=== PATIENT | female | born 1975 | race Caucasian/White ===

== ENCOUNTER → 2019-11-08 | Day surgery (SDC) | payer BC ==
[~2019-11-08] MED LIST: Ringers Lactate 1,000 ML IV ONE
--- NOTE | 2019-11-08 12:11 | RAD REPORT ---
EXAM DESCRIPTION: US - Breast Core BX w/US Guidance - 11/08/2019 10:30 am CLINICAL HISTORY: N63.20 COMPARISON: Breast ultrasound November 01, 2019, mammogram August 2019 TECHNIQUE: The patient presents for ultrasound-guided biopsy of a previously detailed 6-7 mm hypoech oic mass in the 12 o'clock left breast. The ultrasound-guided core biopsy procedure, risks and alternatives were discussed with the patient i n detail. After answering all questions, both oral and written consent were obtained. Time out proced ure was performed. The patient had no contraindicated allergy or medication history. Preliminary imaging identified the 6-7 mm mass. The anterolateral left was prepped and draped in the usual sterile fashion. From a lateral approach, skin and deeper tissues were anesthetized with 1% lid ocaine. The mass appeared more hypoechoic on today's study than on the November 01 ultrasound. A 22 gauge need le was advanced into the mass. Aspiration was attempted. Small amount of debris was obtained within t he needle but the mass itself did not collapse. The obtained material appeared to be thick cystic flu id/ debris. No clear change in shape or decompression of the mass. Therefore procedure was advanced f urther to the ultrasound core biopsy component. Under direct sonographic visualization a 14 gauge vacuum assisted core biopsy needle was advanced and placed at the lateral margin of the mass. There were a total of two core biopsies obtained under dir ect sonographic guidance. After the initial biopsy the mass was much more difficult to identify and d id not maintain shape. All obtained material was given to pathology for histology assessment. At the conclusion of the procedure a localization clip was placed under sonographic guidance. Post biopsy imaging showed no hematoma or measurable bleeding within the breast. Hemostasis was obtai jason at the skin site with a sterile bandage placed. Post procedure care and precaution instructions were given to the patient. IMPRESSION: 1. Ultrasound-guided core biopsy was performed of the left breast 12 o'clock mass. All o btained material was given to pathology for histologic assessment. 2. Post biopsy localization clip was placed under ultrasound guidance.
== END ==
LOC: DS 09:34
PROVIDERS: ATTEND Family Medicine
DX: N63.20 Unspecified lump in the left breast, unspecified quadrant (principal)
CPT/HCPCS: 19083; 88305

== ENCOUNTER 2022-12-24 19:47 | Emergency (ER) | payer BC ==
[2022-12-24] MEDS ORDERED: HYDROCODONE/APAP 10/325 TAB ONE (21:12)
--- NOTE | 2022-12-24 21:58 | RAD REPORT ---
EXAM DESCRIPTION: RAD - Ankle Left 3 View - 12/24/2022 9:47 pm CLINICAL HISTORY: PAIN COMPARISON: No comparisons FINDINGS: Transverse fracture of the distal fibula is present. Moderate surrounding soft tissue swel ling. No dislocation.
--- NOTE | 2022-12-24 21:59 | RAD REPORT ---
EXAM DESCRIPTION: RAD - Foot Left 3 View - 12/24/2022 9:47 pm CLINICAL HISTORY: PAIN COMPARISON: <Comparisons> FINDINGS: No fracture or dislocation of the foot is seen.
[2022-12-24] MEDS ORDERED: IBUPROFEN 400 MG TAB ONE (22:37)
--- NOTE | 2022-12-24 22:40 | ER ---
Nurse's Notes [facility] Name: Anila Euceda Age: 47 yrs Sex: Female : 1975 Arrival Date: 12/24/2022 Time: 19:49 Bed 23 Private MD: Diagnosis: Distal Fibular Fracture Presentation: 12/24 20:27 Chief complaint: Patient states: States got pulled down by a dog and then rolled left ll3 ankle, states pain is 9/10. Coronavirus screen: Vaccine status: Patient reports being unvaccinated. At this time, the client does not indicate any symptoms associated with coronavirus-19. Ebola Screen: No symptoms or risks identified at this time. Initial Sepsis Screen: Does the patient meet any 2 criteria? No. Patient's initial sepsis screen is negative. Does the patient have a suspected source of infection? No. Patient's initial sepsis screen is negative. Risk Assessment: Do you want to hurt yourself or someone else? Patient reports no desire to harm self or others. Onset of symptoms was December 24, 2022 at 19:30. 20:27 Method Of Arrival: Wheelchair ll3 20:27 Acuity: KIN 3 ll3 Triage Assessment: 20:29 General: Appears uncomfortable, Behavior is calm, cooperative. Pain: Complains of pain ll3 in left lateral malleolus Pain does not radiate. Pain currently is 9 out of 10 on a pain scale. Pain began 1 hour ago. Is continuous. Neuro: Level of Consciousness is awake, alert, obeys commands, Oriented to person, place, time, situation. Derm: Skin is pink, warm \T\ dry. Musculoskeletal: Swelling present in left lateral malleolus Reports pain in left lateral malleolus since 1 hr ago. Pain is 9 out of 10 on a pain scale. 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 - Social history:: Smoking status: Patient denies any tobacco usage or history of. Screenin:00 [facility] ED Fall Risk Assessment (Adult) History of falling in the last 3 months, pf1 including since admission Yes- single mechanical fall (1 pt) Confusion or Disorientation No (0 pts) Intoxicated or Sedated No (0 pts) Impaired Gait No (0 pts) Mobility Assist Device Used No (0 pt) Altered Elimination No (0 pt) Score/Fall Risk Level 0 - 2 = Low Risk Oriented to surroundings, Maintained a safe environment, Educated pt \T\ family on fall prevention, incl call for assistance when getting out of bed, Assessed \T\ reinforced patient's understanding of fall precautions, Provided non-skid footwear, Hourly rounding (assess needs \T\ fall precautionary measures) done, Used ambulatory aids as needed (educated on \T\ assisted with), Used gait belt as appropriate. Abuse screen: Denies threats or abuse. Nutritional screening: No deficits noted. Tuberculosis screening: No symptoms or risk factors identified. Assessment: 21:00 General: Appears in no apparent distress. uncomfortable, well groomed, well developed, pf1 Behavior is calm, cooperative, appropriate for age, quiet. 21:00 Pain: Complains of pain in left foot and left lateral malleolus Pain began 1829 today. pf1 Neuro: No deficits noted. Level of Consciousness is awake, alert, obeys commands, Oriented to person, place, time, situation. Cardiovascular: No deficits noted. Capillary refill < 3 seconds Patient's skin is warm and dry. Respiratory: No deficits noted. Airway is patent Trachea midline Respiratory effort is even, unlabored, Respiratory pattern is regular, symmetrical. GI: No deficits noted. No signs and/or symptoms were reported involving the gastrointestinal system. : No deficits noted. No signs and/or symptoms were reported regarding the genitourinary system. EENT: No deficits noted. No signs and/or symptoms were reported regarding the EENT system. Derm: No deficits noted. No signs and/or symptoms reported regarding the dermatologic system. Musculoskeletal: Circulation, motion, and sensation intact. Capillary refill < 3 seconds, Range of motion: limited in left foot and left lateral malleolus Swelling present in left foot and left lateral malleolus Reports Patient stated fell and twisted left foot while walking dog when dog took off running,onset 1829. 21:05 General: ice pack applied to left ankle. pf1 22:00 Reassessment: Patient appears in no apparent distress at this time. No changes from pf1 previously documented assessment. Patient and/or family updated on plan of care and expected duration. Pain level reassessed. Patient is alert, oriented x 3, equal unlabored respirations, skin warm/dry/pink. Patient states feeling better. Patient states symptoms have improved. 23:00 Reassessment: Patient appears in no apparent distress at this time. No changes from pf1 previously documented assessment. Patient and/or family updated on plan of care and expected duration. Pain level reassessed. Patient is alert, oriented x 3, equal unlabored respirations, skin warm/dry/pink. Patient states feeling better. Patient states symptoms have improved. Vital Signs: 20:27 BP 124 / 90; Pulse 111; Resp 18; Temp 98.1(O); Pulse Ox 97% on R/A; Weight 90.72 kg; ll3 Height 5 ft. 1 in. ; Pain 9/10; 21:00 BP 125 / 76; Pulse 94; Resp 16; Pulse Ox 97% ; Pain 7/10; pf1 22:00 BP 122 / 80; Pulse 90; Resp 16; Pulse Ox 97% on R/A; Pain 6/10; pf1 22:30 BP 128 / 74; Pulse 95; Resp 16; Pulse Ox 100% on R/A; Pain 6/10; pf1 20:27 Body Mass Index 37.79 (90.72 kg, 154.94 cm) ll3 20:27 Pain Scale: Adult ll3 21:00 Pain Scale: Adult pf1 22:00 Pain Scale: Adult pf1 22:30 Pain Scale: Adult pf1 ED Course: 19:49 Patient arrived in ED. rg4 19:49 Naga Guzman PA is PHCP. jmm 19:49 Billy Darling MD is Attending Physician. jmm 20:29 Triage completed. ll3 20:29 Arm band placed on Patient placed in waiting room, Patient notified of wait time. ll3 21:00 Patient has correct armband on for positive identification. Bed in low position. Call pf1 light in reach. 21:06 Linda mays, RN is Primary Nurse. pf1 21:49 Ankle Left 3 View XRAY In Process Unspecified. EDMS 21:49 Foot Left 3 View XRAY In Process Unspecified. EDMS 22:39 Tommy Hopson MD is Referral Physician. jmm 22:45 ortho walking boot applied. pf1 23:10 No provider procedures requiring assistance completed. Patient did not have IV access pf1 during this emergency room visit. Administered Medications: 21:05 Drug: [place] PO 10 mg-325 mg 1 tabs Route: PO; pf1 22:05 Follow up: Response: No adverse reaction; Marked relief of symptoms; Pain is decreased; pf1 RASS: Alert and Calm (0) 22:36 Drug: Ibuprofen PO 800 mg Route: PO; pf1 22:51 Follow up: Response: No adverse reaction; Marked relief of symptoms; Pain is decreased pf1 22:45 Drug: Ondansetron PO 4 mg Route: PO; pf1 22:51 Follow up: Response: No adverse reaction; Marked relief of symptoms pf1 23:00 Drug: morphine IM 4 mg Route: IM; Site: left gluteus; pf1 23:07 Follow up: Response: No adverse reaction; Marked relief of symptoms; Pain is decreased; pf1 RASS: Alert and Calm (0) Medication: 23:10 VIS not applicable for this client. pf1 Outcome: 22:40 Discharge ordered by MD. jmm 23:10 Discharged to home via wheelchair, with family. pf1 23:10 Condition: stable 23:10 Discharge instructions given to patient, family, Instructed on discharge instructions, follow up and referral plans. Demonstrated understanding of instructions, follow-up care, medications, Prescriptions given X 1. 23:10 Patient left the ED. pf1 Signatures: Dispatcher [employer] EDMS Naga Guzman PA PA jmm Garcia, Rubi rg4 Patsy Fishman RN RN ll3 Linda mays RN RN pf1
--- NOTE | 2022-12-24 22:40 | EDPHYS ---
Physician Documentation [facility] Name: Anila Euceda Age: 47 yrs Sex: Female : 1975 Arrival Date: 12/24/2022 Time: 19:49 Bed 23 Private MD: ED Physician Bilyl Dalring HPI: 12/24 20:32 This 47 yrs old Female presents to ER via Wheelchair with complaints of Ankle Injury. jmm 20:32 The patient presents with an injury, pain. Onset: The symptoms/episode began/occurred jmm acutely. Associated signs and symptoms: Pertinent positives:. Modifying factors: The symptoms are alleviated by nothing, the symptoms are aggravated by weight bearing. This is a 47 year old female with a history of tachycardia that presents to the ED with complaints of ankle pain after a fall while walking her dog. . 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 - Social history:: Smoking status: Patient denies any tobacco usage or history of. ROS: 20:32 Constitutional: Negative for fever, chills, and weight loss, Cardiovascular: Negative jmm for chest pain, palpitations, and edema, Respiratory: Negative for shortness of breath, cough, wheezing, and pleuritic chest pain. 20:32 MS/extremity: Positive for pain, swelling. 20:32 All other systems are negative. Exam: 20:32 Constitutional: This is a well developed, well nourished patient who is awake, alert, jmm and in no acute distress. Head/Face: atraumatic. Eyes: EOMI, no conjunctival erythema appreciated ENT: Moist Mucus Membranes Neck: Trachea midline, Supple Chest/axilla: Normal chest wall appearance and motion. Cardiovascular: Regular rate and rhythm. No edema appreciated Respiratory: Normal respirations, no respiratory distress appreciated Abdomen/GI: Non distended Back: Normal ROM Skin: General appearance color normal 20:32 Musculoskeletal/extremity: swelling noted to the left ankle, compartments are soft, jmm full dorsalis pulse, NVI. 20:32 Skin: Appearance: Color: normal in color. [facility] 20:32 Neuro: Orientation: is normal, Mentation: is normal, Memory: is normal. 20:32 Psych: Behavior/mood is pleasant, cooperative. Vital Signs: 20:27 BP 124 / 90; Pulse 111; Resp 18; Temp 98.1(O); Pulse Ox 97% on R/A; Weight 90.72 kg; ll3 Height 5 ft. 1 in. ; Pain 9/10; 21:00 BP 125 / 76; Pulse 94; Resp 16; Pulse Ox 97% ; Pain 7/10; pf1 22:00 BP 122 / 80; Pulse 90; Resp 16; Pulse Ox 97% on R/A; Pain 6/10; pf1 22:30 BP 128 / 74; Pulse 95; Resp 16; Pulse Ox 100% on R/A; Pain 6/10; pf1 20:27 Body Mass Index 37.79 (90.72 kg, 154.94 cm) ll3 20:27 Pain Scale: Adult ll3 21:00 Pain Scale: Adult pf1 22:00 Pain Scale: Adult pf1 22:30 Pain Scale: Adult pf1 MDM: 20:32 Patient medically screened. [facility] 22:37 Differential diagnosis: fracture, sprain. Data reviewed: vital signs, nurses notes, [facility] radiologic studies, plain films. I considered the following discharge prescriptions or medication management in the emergency department Medications were administered in the Emergency Department. See MAR. Independent interpretation of the following test(s) in the Emergency Department X-Ray: My interpretation is distal fibular fracture. Historians other than the Patient: . Counseling: I had a detailed discussion with the patient and/or guardian regarding: the historical points, exam findings, and any diagnostic results supporting the discharge/admit diagnosis, radiology results, the need for outpatient follow up, to return to the emergency department if symptoms worsen or persist or if there are any questions or concerns that arise at home. 12/24 20:33 Order name: Ankle Left 3 View XRAY; Complete Time: 22:11 [facility] 12/24 20:33 Order name: Foot Left 3 View XRAY; Complete Time: 22:11 [facility] 12/24 21:44 Order name: Misc. Order: Orthoboot; Complete Time: 22:51 [facility] 12/24 22:53 Order name: Milind; Complete Time: 22:57 [facility] Administered Medications: 21:05 Drug: [place] PO 10 mg-325 mg 1 tabs Route: PO; pf1 22:05 Follow up: Response: No adverse reaction; Marked relief of symptoms; Pain is decreased; pf1 RASS: Alert and Calm (0) 22:36 Drug: Ibuprofen PO 800 mg Route: PO; pf1 22:51 Follow up: Response: No adverse reaction; Marked relief of symptoms; Pain is decreased pf1 22:45 Drug: Ondansetron PO 4 mg Route: PO; pf1 22:51 Follow up: Response: No adverse reaction; Marked relief of symptoms pf1 23:00 Drug: morphine IM 4 mg Route: IM; Site: left gluteus; pf1 23:07 Follow up: Response: No adverse reaction; Marked relief of symptoms; Pain is decreased; pf1 RASS: Alert and Calm (0) Disposition Summary: 12/24/22 22:40 Discharge Ordered Location: Home [facility] Condition: Stable [facility] Diagnosis - Distal Fibular Fracture [facility] Followup: [facility] - With: Tommy Hopson MD - When: 2 - 3 days - Reason: Recheck today's complaints, Continuance of care, Re-evaluation by your physician Discharge Instructions: - Discharge Summary Sheet [facility] - Ankle Fracture [facility] Forms: - Medication Reconciliation Form [facility] - Thank You Letter [facility] - Antibiotic Education [facility] - Prescription Opioid Use [facility] Prescriptions: - Ultracet 37.5-325 mg Oral Tablet - take 1 tablet by ORAL route every 6 hours - for up to 5 days; do not exceed 8 jmm tablets per day.; 30 tablet; Refills: 0, Product Selection Permitted Signatures: Dispatcher [employer] Naga Calloway PA PA Patsy Harris RN RN ll3 Linda mays RN RN pf1
[2022-12-24] MEDS ORDERED: ONDANSETRON 4 MG (ODT) TAB ONE (22:42)
[2022-12-24] MEDS ORDERED: MORPHINE 4 MG/ML SYR ONE (23:03)
[2022-12-24 23:17] VITALS: TEMP 98.1
[2022-12-24 23:21] VITALS: BP 128/74; O2SAT 100
== END 2022-12-24 23:10 | disposition home or self-care (01) ==
LOC: ER 19:47
DX: S82.422A Displaced transverse fracture of shaft of left fibula, initial encounter for closed fracture (principal)
CPT/HCPCS: 73630; 73610; Q0162

== ENCOUNTER 2023-05-24 14:03 | Emergency (ER) | payer BC ==
[2023-05-24] MEDS ORDERED: ACETAMINOPHEN 500 MG TAB ONE (15:06)
[2023-05-24] MEDS ORDERED: KETOROLAC 30 MG/ML INJ ONE (15:06)
[2023-05-24 15:32] LABS: Hematocrit 41.8 % (36.0-45.0); Lymphocytes % 24.9 % (15.3-44.8); MCV 83.7 fL (80-100); MPV 7.9 fL (7.6-11.3); Platelets 317 thou/uL (152-406)
[2023-05-24 15:45] LABS: Albumin 3.6 g/dL (3.4-5.0); Bilirubin Total 0.5 mg/dL (0.2-1.0); Potassium 3.8 mEq/L (3.5-5.1); Protein, Total 8.2 g/dL (6.4-8.2)
--- NOTE | 2023-05-24 15:53 | RAD REPORT ---
EXAM DESCRIPTION: CT - Abdomen Pelvis Wo Contrast - 05/24/2023 3:11 pm CLINICAL HISTORY: R flank pain COMPARISON: No comparisons TECHNIQUE: Thin cut axial CT imaging of the abdomen and pelvis was performed without IV contrast. Mu ltiplanar reformats were generated and reviewed. All CT scans are performed using dose optimization technique as appropriate and may include automated exposure control or mA/KV adjustment according to patient size. FINDINGS: No suspicious findings in the lung bases. The liver, spleen, and pancreas show no suspicious findings. Gallbladder and biliary tree are also wi thout suspicious finding. Symmetric renal contour, without suspicious parenchymal findings within limits of noncontrast techniq ue. Mild right hydronephrosis. Three calculi are present within the proximal right ureter, the larges t measures up to 7 millimeter. Other nonobstructing tiny calculi, up to 3 millimeter along the right upper and lower renal pole, and 2 millimeter at the left renal mid to lower pole. No dilated bowel loops or bowel wall thickening. No free air, free fluid or inflammatory stranding. N o hernia, mass or bulky lymphadenopathy. The urinary bladder is without significant finding. Right ad nexal ovoid 4.5 x 2.8 cm mass containing calcifications and macroscopic fat, most compatible with a t eratoma. No suspicious bony findings. IMPRESSION: Mild right hydronephrosis. Three calculi present within the proximal right ureter, large st measuring 7 millimeter. Other findings as detailed above. The findings were communicated to Cruz Page on 05/24/2023 at 15:47 hours.
[2023-05-24] MEDS ORDERED: NA CHLORIDE 0.9% 1,000 ML ONE (16:54)
[2023-05-24] MEDS ORDERED: HYDROMORPHONE HCL 0.5 MG/0.5 ML INJ ONE ×2 (16:54→17:52)
[2023-05-24 17:05] LABS: Specific Gravity 1.025 (1.005-1.030); Urine Bacteria <20 /HPF (<20); Urine Bilirubin NEGATIVE (Negative); Urine Blood 3+ (OVER) (Negative); Urine Clarity Extremely Turbid (Clear); Urine Color Yellow (Yellow); Urine Crystals Unidentified Few /HPF (None Seen); Urine Glucose NEGATIVE (Negative); Urine Mucus 3+ /HPF (None Seen); Urine Protein 1+ (Negative); Urine RBC >50 /HPF (None Seen); Urine Urobilinogen Normal (Normal); Urine pH 5.5 (5.0-7.0)
[2023-05-24] MEDS ORDERED: NA CHLORIDE 0.9% 50 ML ONE (17:52)
[2023-05-24] MEDS ORDERED: METOCLOPRAMIDE 10 MG/2mL INJ ONE (17:52)
--- NOTE | 2023-05-24 18:21 | EDPHYS ---
Physician Documentation [facility] Name: Anila Euceda Age: 48 yrs Sex: Female : 1975 Arrival Date: 05/24/2023 Time: 14:03 Bed 17 Private MD: ED Physician Darwin Burns HPI: 05/24 14:48 The patient presents with pain that is acute, with no known mechanism of injury. jr11 Patient is a 48-year-old female with 2-day history of right-sided flank pain radiating anteriorly, more so in the right flank, around her right kidney, pain is moderate to severe, colicky in nature. No vomiting, had a severe episode prior to coming in and that is why decided to come in. Denies any urinary complaints at this time. Had a bowel movement prior to coming in here. Review of system otherwise negative. 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 - Social history:: Smoking status: Patient denies any tobacco usage or history of. ROS: 14:48 All other systems are negative. jr11 Exam: 14:48 Constitutional: This is a well developed, well nourished patient who is awake, alert, jr11 and in no acute distress. Head/Face: Normocephalic, atraumatic. Eyes: Extra-ocular motions intact. Lids and lashes normal. Conjunctiva and sclera are non-icteric and not injected. Cornea within normal limits. Periorbital areas with no swelling, redness, or edema. ENT: Nares patent. No nasal discharge, no septal abnormalities noted. Oropharynx with no redness, swelling, or masses, exudates, or evidence of obstruction, uvula midline. Mucous membranes moist. Neck: Trachea midline, no thyromegaly or masses palpated, and no cervical lymphadenopathy. Supple, full range of motion without nuchal rigidity, or vertebral point tenderness. No Meningismus. Chest/axilla: Normal chest wall appearance and motion. Nontender with no deformity. No lesions are appreciated. Cardiovascular: Regular rate and rhythm with a normal S1 and S2. No gallops, murmurs, or rubs. Normal PMI, no JVD. No pulse deficits. Respiratory: Lungs have equal breath sounds bilaterally, clear to auscultation and percussion. No rales, rhonchi or wheezes noted. No increased work of breathing, no retractions or nasal flaring. Abdomen/GI: Soft, non-tender, with normal bowel sounds. No distension or tympany. No guarding or rebound. No evidence of tenderness throughout. Back: No spinal tenderness. No costovertebral tenderness. Full range of motion. Skin: Warm, dry with normal turgor. Normal color with no rashes, no lesions, and no evidence of cellulitis. MS/ Extremity: Pulses equal, no cyanosis. Neurovascular intact. Full, normal range of motion. Vital Signs: 14:36 BP 143 / 98; Pulse 97; Resp 18; Temp 98.9(O); Pulse Ox 99% ; Weight 90.72 kg; Height 5 nj1 ft. 1 in. ; Pain 7/10; 17:00 BP 151 / 79; Pulse 75; Resp 16; Pulse Ox 98% on R/A; db 18:00 BP 135 / 85; Pulse 81; Resp 16; Pulse Ox 98% on R/A; db 14:36 Body Mass Index 37.79 (90.72 kg, 154.94 cm) [facility] 14:36 Pain Scale: Adult [facility] MDM: 14:45 Patient medically screened. [facility] 14:48 Differential diagnosis: Cholelithiasis versus cholecystitis versus appendicitis versus jr11 renal stone versus pyelonephritis. Data reviewed: vital signs, nurses notes. 18:19 ED course: CT scan images reviewed by me, proximal kidney stone, no evidence of upper jr11 tract disease. No significant leukocytosis, no chills no fever no dysuria, doubt infected stone, doubt upper tract disease, patient comfortable with plan of care to start antibiotics, follow-up outpatient urology. If not improving or pain is not under control patient to return. 05/24 14:46 Order name: CBC with Diff; Complete Time: 15:57 jr11 05/24 14:46 Order name: CMP; Complete Time: 15:57 [facility] 05/24 14:46 Order name: Lipase; Complete Time: 15:57 [facility] 05/24 14:46 Order name: Urinalysis w/ reflexes; Complete Time: 17:52 [facility] 05/24 17:09 Order name: Urine Culture [facility] 05/24 14:46 Order name: CT Abd/Pelvis - Without Contrast; Complete Time: 15:57 [facility] 05/24 14:46 Order name: IV Saline Lock; Complete Time: 15:04 [facility] 05/24 14:46 Order name: Labs collected and sent; Complete Time: 15:04 [facility] Administered Medications: 15:04 Drug: TORadol - Ketorolac IVP 15 mg Route: IVP; Site: right antecubital; nj1 18:46 Follow up: Response: No adverse reaction db 15:04 Drug: Acetaminophen PO 1000 mg Route: PO; nj1 18:46 Follow up: Response: No adverse reaction db 16:50 Drug: NS 0.9% IV 1000 ml Route: IV; Rate: 1 bolus; Site: right antecubital; hb 18:46 Follow up: Response: No adverse reaction; IV Status: Completed infusion; IV Intake: db 1000ml 16:50 Drug: HYDROmorphone IVP 0.5 mg Route: IVP; Site: right antecubital; hb 18:46 Follow up: Response: No adverse reaction db 17:54 Drug: HYDROmorphone IVP 0.5 mg Route: IVP; Site: right antecubital; db 18:46 Follow up: Response: No adverse reaction db 17:54 Drug: metoCLOPramide IVP 10 mg Route: IVP; Site: right antecubital; db 18:47 Follow up: Response: No adverse reaction db 18:21 Drug: Cephalexin PO 500 mg Route: PO; db 18:46 Follow up: Response: No adverse reaction db Disposition Summary: 05/24/23 18:20 Discharge Ordered Location: Home [facility] Condition: Stable jr11 Diagnosis - Hydronephrosis with renal and ureteral calculous obstruction jr11 - UTI/ Urinary tract infection, site not specified jr11 Followup: jr11 - With: Paul Sam MD - When: 1 - 2 days - Reason: Recheck today's complaints Discharge Instructions: - Discharge Summary Sheet jr11 - Kidney Stones jr11 - Urinary Tract Infection, Adult jr11 Forms: - Medication Reconciliation Form jr11 - Thank You Letter jr11 - Antibiotic Education jr11 - Prescription Opioid Use jr11 - Patient Portal Instructions jr11 - Leadership Thank You Letter jr11 - Work release form db Prescriptions: - Ibuprofen 600 mg Oral Tablet - take 1 tablet by ORAL route every 6 hours As needed take with food; 30 tablet; jr11 Refills: 0, Product Selection Permitted - Zofran 4 mg Oral Tablet - take 1 tablet by ORAL route every 12 hours As needed; 20 tablet; Refills: 0, jr11 Product Selection Permitted Signatures: Dispatcher [employer] EDLA Little Candelario RN RN Darwin Palacio MD MD jr11 Monika Mcadams RN RN db Olivia Black RN RN nj1
--- NOTE | 2023-05-24 18:21 | ER ---
Nurse's Notes [facility] Name: Anila Euceda Age: 48 yrs Sex: Female : 1975 Arrival Date: 05/24/2023 Time: 14:03 Bed 17 Private MD: Diagnosis: Hydronephrosis with renal and ureteral calculous obstruction;UTI/ Urinary tract infection, site not specified Presentation: 05/24 14:36 Chief complaint: Patient states: Abdominal pain since yesterday. Today, after using nd1 restroom, bm, abdominal pain got more severe and started having back pain. Coronavirus screen: Vaccine status: Patient reports being unvaccinated. Ebola Screen: Patient denies travel to an Ebola-affected area in the 21 days before illness onset. Initial Sepsis Screen: Does the patient meet any 2 criteria? HR > 90 bpm. No. Patient's initial sepsis screen is negative. Does the patient have a suspected source of infection? No. Patient's initial sepsis screen is negative. Risk Assessment: Do you want to hurt yourself or someone else? Patient reports no desire to harm self or others. Onset of symptoms was May 23, 2023. 14:36 Method Of Arrival: Wheelchair [facility] 14:36 Acuity: KIN 3 nj1 Triage Assessment: 15:04 General: Appears in no apparent distress. uncomfortable, Behavior is calm, cooperative, nj1 appropriate for age. 15:04 Pain: Complains of pain in abdomen Pain currently is 7 out of 10 on a pain scale. Pain: nj1 Pain radiates to back. Neuro: Level of Consciousness is awake, alert, obeys commands, Oriented to person, place, time, situation. Cardiovascular: Patient's skin is warm and dry. Respiratory: Airway is patent Respiratory effort is even, unlabored. GI: Reports Right sided abdominal pain. 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 - Social history:: Smoking status: Patient denies any tobacco usage or history of. Screenin:05 [facility] ED Fall Risk Assessment (Adult) Score/Fall Risk Level 0 - 2 = Low Risk nj1 Oriented to surroundings, Maintained a safe environment, Hourly rounding (assess needs \T\ fall precautionary measures) done. Abuse screen: Denies threats or abuse. Denies injuries from another. Nutritional screening: No deficits noted. Tuberculosis screening: No symptoms or risk factors identified. Assessment: 17:30 Reassessment: Patient appears in no apparent distress at this time. Patient and/or db family updated on plan of care and expected duration. Pain level reassessed. Patient is alert, oriented x 3, equal unlabored respirations, skin warm/dry/pink. General: Appears in no apparent distress. comfortable, Behavior is calm, cooperative. Pain: Complains of pain in back and abdomen. Neuro: Level of Consciousness is awake, alert, obeys commands, Oriented to person, place, time, situation. Respiratory: Airway is patent Respiratory effort is even, unlabored, Respiratory pattern is regular, symmetrical. GI: Abdomen is flat, non-distended. 18:30 Reassessment: Patient appears in no apparent distress at this time. Patient states db feeling better. Patient states symptoms have improved. Vital Signs: 14:36 BP 143 / 98; Pulse 97; Resp 18; Temp 98.9(O); Pulse Ox 99% ; Weight 90.72 kg; Height 5 nj1 ft. 1 in. ; Pain 7/10; 17:00 BP 151 / 79; Pulse 75; Resp 16; Pulse Ox 98% on R/A; db 18:00 BP 135 / 85; Pulse 81; Resp 16; Pulse Ox 98% on R/A; db 14:36 Body Mass Index 37.79 (90.72 kg, 154.94 cm) nj1 14:36 Pain Scale: Adult nj1 ED Course: 14:05 Patient arrived in ED. ts1 14:39 Triage completed. nj1 14:42 Arm band placed on left wrist. nj1 14:45 Darwin Burns MD is Attending Physician. jr11 15:02 Inserted saline lock: 22 gauge in right antecubital area, using aseptic technique. nj1 Blood collected. 15:06 Patient has correct armband on for positive identification. Adult w/ patient. nj1 15:13 CT Abd/Pelvis - Without Contrast In Process Unspecified. EDMS 16:54 Urinalysis w/ reflexes Sent. hb 17:54 Monika Mcadams, RN is Primary Nurse. db 18:20 Paul Sam MD is Referral Physician. jr11 18:43 Provided Education on: DISCHARGE. db 18:43 No provider procedures requiring assistance completed. IV discontinued, intact, db bleeding controlled, No redness/swelling at site. Administered Medications: 15:04 Drug: TORadol - Ketorolac IVP 15 mg Route: IVP; Site: right antecubital; nj1 18:46 Follow up: Response: No adverse reaction db 15:04 Drug: Acetaminophen PO 1000 mg Route: PO; nj1 18:46 Follow up: Response: No adverse reaction db 16:50 Drug: NS 0.9% IV 1000 ml Route: IV; Rate: 1 bolus; Site: right antecubital; hb 18:46 Follow up: Response: No adverse reaction; IV Status: Completed infusion; IV Intake: db 1000ml 16:50 Drug: HYDROmorphone IVP 0.5 mg Route: IVP; Site: right antecubital; hb 18:46 Follow up: Response: No adverse reaction db 17:54 Drug: HYDROmorphone IVP 0.5 mg Route: IVP; Site: right antecubital; db 18:46 Follow up: Response: No adverse reaction db 17:54 Drug: metoCLOPramide IVP 10 mg Route: IVP; Site: right antecubital; db 18:47 Follow up: Response: No adverse reaction db 18:21 Drug: Cephalexin PO 500 mg Route: PO; db 18:46 Follow up: Response: No adverse reaction db Medication: 18:43 VIS not applicable for this client. db Intake: 18:46 IV: 1000ml; Total: 1000ml. db Outcome: 18:20 Discharge ordered by . jr11 18:43 Discharged to home via wheelchair, with family. db 18:43 Condition: stable 18:43 Discharge instructions given to patient, family, Instructed on discharge instructions, follow up and referral plans. Prescriptions given X 3. 18:47 Patient left the ED. db Signatures: Dispatcher [employer] EDNH Little Candelario RN RN Darwin Burns MD MD jr Monika Mcadams, RN RN db Olivia Black RN RN nj1 Nikki Chapman, LUCILLE PAS ts1 Corrections: (The following items were deleted from the chart) 15:05 15:04 General: Appears in no apparent distress. uncomfortable, Behavior is calm, nj1 cooperative, appropriate for age, nj1
[2023-05-24] MEDS ORDERED: CEPHALEXIN 250 MG CAP ONE (18:28)
[2023-05-24 19:11] VITALS: TEMP 98.9
[2023-05-24 19:12] VITALS: O2SAT 98
[2023-05-24 19:15] VITALS: BP 135/85
== END 2023-05-24 18:47 | disposition home or self-care (01) ==
LOC: ER 14:03
DX: N13.2 Hydronephrosis with renal and ureteral calculous obstruction (principal); N39.0 Urinary tract infection, site not specified; E03.9 Hypothyroidism, unspecified
CPT/HCPCS: 96361; 87088; 85025; 81001; 87086; 36415; 83690; 80053; 74176; 96375; 96374; 99284; J2765; J1170 ×2; J7030